=== PATIENT | male | born 1960 | race Caucasian/White ===

== ENCOUNTER 2017-10-27 21:05 | Emergency (ER) | payer OTHER ==
[~2017-10-27] VITALS: Ht 175.3 cm; Wt 96.3 kg
[~2017-10-27 21:05] MED LIST: ANTIVERT25 MG PO; KEFLEX500 MG PO; NAPROXEN500 MG PO; NOHOMEMEDS
[2017-10-27] MEDS ORDERED: NAPROXEN500 MG PO (23:50)
[2017-10-28 00:08] VITALS: BP 139/82
== END 2017-10-28 00:09 | disposition home or self-care (01) ==
LOC: EME 21:05 → RME 21:05
DX: M79.89 Other specified soft tissue disorders (principal); M79.641 Pain in right hand; F17.200 Nicotine dependence, unspecified, uncomplicated
CPT/HCPCS: 73130; 99281; 99284; J1885